=== PATIENT | male | born 1980 | race Caucasian/White ===

== ENCOUNTER 2020-01-07 22:34 | Emergency (ER) | payer MEDICAID ==
[~2020-01-07] VITALS: Ht 182.9 cm; Wt 63.5 kg
--- NOTE | 2020-01-07 22:52 | NUR ---
PT CAME TO THE ED C/O SI W/ A PLAN TO CUT HIMSELF. PT STATES " I DONT FEEL SAFE ANYMORE". DENIES HI AND DRUG USE. ON ATIVAN. PT AAOX4, NO ACUTE DISTRESS NOTED. CALM AND COOPERATIVE. PT CHANGED INTO GOWN, BELONGINGS PLACED TO LOCKER, SUICIDE PRECAUTIONS IMPLEMENTED. SITTER AT BEDSIDE FOR SAFETY.
[2020-01-07 23:07] LABS: APPEARANCE,URINE Clear (CLEAR); BILIRUBIN,URINE Negative (NEGATIVE); BLOOD, URINE Negative Ery/uL (NEGATIVE); COLOR,URINE Yellow (YELLOW); KETONES,URINE Negative (NEGATIVE); LEUKOCYTE ESTERASE ,URINE Negative (NEGATIVE); NITRITE, URINE Negative (NEGATIVE); PH,URINE 7.5 (5.0-8.0); PROTEIN,URINE Negative (NEGATIVE); UGLUCOSE Negative (NEGATIVE)
[2020-01-07 23:17] LABS: BASOPHILS # (AUTO) 0.1 /CMM (0.0-0.2); HEMATOCRIT 38 % (39-51); LYMPHOCYTES % (AUTO) 14.6 % (20.0-44.0); MEAN CORPUSCULAR HGB CONC 34 g/dl (31.0-36.0); MEAN CORPUSCULAR VOLUME 91 fL (80-96); MONOCYTES # (AUTO) 0.4 /CMM (0.1-1.30); MONOCYTES % (AUTO) 6.5 % (2.0-12.0); NEUTROPHILS # (AUTO) 5.1 /CMM (1.8-8.9); NEUTROPHILS % (AUTO) 75.9 % (43.0-81.0); PLATELET COUNT (AUTO) 210 /CMM (150-450); RED BLOOD CELL COUNT(AUTO) 4.18 MIL/uL (4.5-6.0); WHITE BLOOD COUNT (AUTO) 6.7 K/uL (4.3-11.0)
[2020-01-07 23:18] LABS: BACTERIA,URINE Few /HPF (None Seen); RBC,URINE 0-2 /HPF (0-2); SQUAMOUS EPITHELIAL CELL,UR Few /HPF (None Seen); WBC,URINE 0-2 /HPF (0-3)
[2020-01-07 23:25] LABS: CALCIUM, SERUM 8.7 mg/dL (8.5-10.1); CARBON DIOXIDE 32 mmol/L (21-32); CHLORIDE 104 mmol/L (98-107); CREATININE 0.9 mg/dL (0.6-1.3); GLUCOSE 133 mg/dL (74-106); POTASSIUM 3.7 mmol/L (3.5-5.1); SODIUM SERUM 141 mmol/L (136-145); UREA NITROGEN, BLOOD 14 mg/dL (7-18)
[2020-01-07 23:30] LABS: ACETAMINOPHEN 1 ug/ml (10-30); ALANINE AMINOTRANSFERASE 31 U/L (12-78); ALBUMIN 3.9 g/dL (3.4-5.0); ALCOHOL, BLOOD < 3 mg/dL (0-0); ALKALINE PHOSPHATASE 74 U/L (46-116); ASPARTATE AMINOTRANSFERASE 23 U/L (15-37); BILIRUBIN,DIRECT 0.1 mg/dL (0.0-0.2); BILIRUBIN,TOTAL 0.5 mg/dL (0.2-1.0); SALICYLATE 0.2 mg/dL (2.8-20.0); TOTAL PROTEIN, SERUM 7.1 g/dL (6.4-8.2)
[2020-01-08] MEDS ORDERED: IV NS 0.9% 1,000 ML IV ONE
--- NOTE | 2020-01-08 00:18 | NUR ---
CLINICAL FAXED TO [facility] FOR VOLUNTARY PSYCH ADMISSION.
--- NOTE | 2020-01-08 02:20 | NUR ---
PT ACCEPTED AT [facility] ACCEPTING MD FERNÁNDEZ/DR. WU PHONE # FOR REPORT [phone]
--- NOTE | 2020-01-08 02:28 | NUR ---
REPORT GIVEN TO ANA REDDY
--- NOTE | 2020-01-08 02:41 | NUR ---
PT RESTING COMFORTABLY IN BED. VSS. NO ACUTE DISTRESS NOTED. SITTER AT BEDSIDE FOR SAFETY
--- NOTE | 2020-01-08 04:00 | NUR ---
CALLED [facility] FOR BLS TRANSPORT, SAID THEY DO NOT HAVE BLS RIGS AVAILABILE TILL 629
--- NOTE | 2020-01-08 04:05 | NUR ---
CALLED [facility] FOR BLS TRANSPORT, SAID "DISPATCH TOLD ME TO INFORM YOU TO CALL [facility] FOR THIS TRANSPORT."
--- NOTE | 2020-01-08 04:10 | NUR ---
CALLED [facility] FOR BLS TRANSPORT, STATED "PT INSURANCE DOES NOT ALLOW THEM TO BE COVERED FOR TRANSPORTATION SERVICES".
--- NOTE | 2020-01-08 04:20 | NUR ---
PT REFUSED TO GET TRANSFERRED AT [facility]. MADE AWARE.
--- NOTE | 2020-01-08 06:04 | NUR ---
PT RESTING COMFORTABLY IN BED. VSS. NO ACUTE DISTRESS NOTED. SITTER AT BEDSIDE FOR SAFETY
--- NOTE | 2020-01-08 07:15 | NUR ---
RECEIVED PATIENT IN BED ASLEEP, EASILY AROUSABLE BY VOCE. HOOKED TO MONITOR, VSS, SITTER AT BEDSIDE, WILL CONTINUE TO MONITOR ACCORDINGLY, KEPT SAFE AND COMFORTABLE.
--- NOTE | 2020-01-08 07:27 | NUR ---
PT ASLEEP ON BED EASILY AROUSABLE, NOT IN RESPIRATORY DISTRESS, V/S STABLE, KEPT RESTED AND COMFORTABLE. WILL CONTINUE TO MONITOR.
--- NOTE | 2020-01-08 08:10 | NUR ---
SPOKED TO [facility]. NO BEDS AVAILABLE AT [facility], WILL FOLLOW UP LATER AFTERNOON
--- NOTE | 2020-01-08 08:37 | NUR ---
GIVEN BREAKFAST TRAY, TOLERATING PO WELL.
--- NOTE | 2020-01-08 12:31 | NUR ---
CALLED [facility] TO FOLLOW UP FOR BED, PER INTAKE NO BEDS AVAILABLE YET.
[2020-01-08] MEDS ORDERED: LORAZEPAM 1 MG TABLET ONE (13:36)
--- NOTE | 2020-01-08 13:40 | NUR ---
PT IS AWAKE ON BED, AAOX4, NOT IN RESPIRATORY DISTRESS, V/S STABLE, KEPT RESTED AND COMFORTABLE, WILL CONTINUE TO MONITOR.
[2020-01-08] MEDS ORDERED: LORAZEPAM 1 MG TABLET PO ONE (14:00)
--- NOTE | 2020-01-08 19:32 | NUR ---
CALLED [facility] FOR BEDS AT [place]. SAID THEY WERE UNABLE TO DISCHARGE PATIENTS TODAY, PLEASE CALL AFTER 0700 TOMORROW MORNING.
--- NOTE | 2020-01-08 21:48 | NUR ---
PT RESTING COMFORTABLY IN BED. VSS. NO ACUTE DISTRESS NOTED. SITTER AT BEDSIDE FOR SAFETY
--- NOTE | 2020-01-09 00:25 | NUR ---
PT RESTING COMFORTABLY IN BED. VSS. NO ACUTE DISTRESS NOTED. SITTER AT BEDSIDE FOR SAFETY
--- NOTE | 2020-01-09 03:35 | NUR ---
PT RESTING COMFORTABLY IN BED. VSS. NO ACUTE DISTRESS NOTED. SITTER AT BEDSIDE FOR SAFETY
--- NOTE | 2020-01-09 06:12 | NUR ---
PT RESTING COMFORTABLY IN BED. VSS. NO ACUTE DISTRESS NOTED. SITTER AT BEDSIDE FOR SAFETY
--- NOTE | 2020-01-09 07:16 | NUR ---
SPOKE TO INTAKE, SAID CALL AFTER 0930 FOR BED AVAILABILITY.
[2020-01-09] MEDS ORDERED: LORAZEPAM 1 MG TABLET ONE (08:28)
[2020-01-09] MEDS ORDERED: LORAZEPAM 1 MG TABLET PO ONE (08:30)
--- NOTE | 2020-01-09 10:00 | NUR ---
ALLI contacted Jhonatan at [facility] intake for an updated. Per Jhonatan,they will accept the pt at [place]. Intake [facility] intake to f/u with ALLI.
--- NOTE | 2020-01-09 13:04 | NUR ---
CHILD CARE EDUCATION COORDINATOR followed up with [facility] intake and spoke with Antonietta. Per Antonietta pt will be going to [facility], however there are pending discharges at this time and will follow up with SW in 30 minutes.
--- NOTE | 2020-01-09 14:23 | NUR ---
ALLI received a message from Jhonatan at [facility], pt will be accepted to [facility].
--- NOTE | 2020-01-09 15:10 | NUR ---
ART STOCK TURNER AT BEDSIDE FOR EVAL.
--- NOTE | 2020-01-09 15:30 | NUR ---
DAM ATTENDANT contacted Antonietta at [facility] and was informed pt has been accepted to [facility], Room 101/A. Accepting /Dr Whittington. Call report to Unit 1 propellant charge loader . DAM ATTENDANT updated ED with aforementioned information.
--- NOTE | 2020-01-09 15:50 | NUR ---
PT WANTS TO BE DISCHARGED AND STATED HE FEELS BETTER AND NOT SUICIDAL ANYMORE. AWARE.
--- NOTE | 2020-01-09 16:01 | NUR ---
Patient discharged to home in stable condition. Written and verbal after care instructions given. Patient verbalizes understanding of instruction.
[2020-01-09 16:02] VITALS: BP 120/71
--- NOTE | 2020-01-09 16:17 | NUR ---
Unable to changed departure disposition.Patient discharged to home in stable condition. Written and verbal after care instructions given. Patient verbalizes understanding of instruction.
== END 2020-01-09 16:19 | disposition home or self-care (01) ==
LOC: ER 22:37
DX: R45.851 Suicidal ideations (principal); F32.9 Major depressive disorder, single episode, unspecified; E11.9 Type 2 diabetes mellitus without complications; F90.9 Attention-deficit hyperactivity disorder, unspecified type; F43.10 Post-traumatic stress disorder, unspecified; F41.9 Anxiety disorder, unspecified
CPT/HCPCS: 36415; 80048; 80076; 80305; 80307; 80329; 81001; 85025; 99285; G0480; 81000-TC

== ENCOUNTER 2020-01-18 23:14 | Emergency (ER) | payer MEDICAID ==
[~2020-01-18] VITALS: Ht 182.9 cm; Wt 63.5 kg
--- NOTE | 2020-01-18 23:30 | NUR ---
URINE COLLECTED AND SENT TO LAB
--- NOTE | 2020-01-18 23:32 | NUR ---
BIBSELF C/O SUICIDAL IDEATION WITH PLAN TO CUT WRISTS. NOTED ABRASIONS/HESITATION BOND R WRIST, AWARE. PT ALSO STATES HE HAS HISTORY OF PTSD, RECENTLY GETTING WORSE. ALSO STATES HE HAS BEEN OFF PSYCH MEDICATIONS X1 WEEK. PT AAOX4. CALM AND COOPERATIVE. VITAL SIGNS STABLE. RESPIRATIONS EVEN AND UNLABORED. SKIN INTACT. AMBULATORY WITH STEADY GAIT. NO ACUTE DISTRESS NOTED AT THIS TIME. PT PLACED IN GOWN, BELONGINGS COLLECTED AND PLACED IN PATIENT LOCKER. SITTER AT BEDSIDE, WILL CONTINUE TO MONITOR.
--- NOTE | 2020-01-18 23:35 | NUR ---
DOUBLER OPERATOR AT BEDSIDE FOR BLOOD DRAW
[2020-01-18 23:45] LABS: BASOPHILS % (AUTO) 0.5 % (0.0-2.0); EOSINOPHILS % (AUTO) 5.9 % (0.0-6.0); HEMATOCRIT 38 % (39-51); HEMOGLOBIN 12.9 g/dL (13.5-17.5); LYMPHOCYTES # (AUTO) 1.2 /CMM (0.8-4.8); LYMPHOCYTES % (AUTO) 30.3 % (20.0-44.0); MEAN CORPUSCULAR HGB CONC 34 g/dl (31.0-36.0); MEAN CORPUSCULAR VOLUME 91 fL (80-96); MONOCYTES # (AUTO) 0.4 /CMM (0.1-1.30); MONOCYTES % (AUTO) 10.9 % (2.0-12.0); NEUTROPHILS # (AUTO) 2.2 /CMM (1.8-8.9); NEUTROPHILS % (AUTO) 52.4 % (43.0-81.0); PLATELET COUNT (AUTO) 212 /CMM (150-450); RED BLOOD CELL COUNT(AUTO) 4.16 MIL/uL (4.5-6.0); WHITE BLOOD COUNT (AUTO) 4.1 K/uL (4.3-11.0)
[2020-01-18 23:46] LABS: APPEARANCE,URINE Clear (CLEAR); BILIRUBIN,URINE Negative (NEGATIVE); BLOOD, URINE Trace-intact Ery/uL (NEGATIVE); COLOR,URINE DARK YELLOW (YELLOW); KETONES,URINE Negative (NEGATIVE); LEUKOCYTE ESTERASE ,URINE Negative (NEGATIVE); NITRITE, URINE Negative (NEGATIVE); PROTEIN,URINE Negative (NEGATIVE); UGLUCOSE Negative (NEGATIVE); UROBILINOGEN,URINE 0.2 EU/dL (0.2)
[2020-01-18 23:57] LABS: CALCIUM, SERUM 8.9 mg/dL (8.5-10.1); CARBON DIOXIDE 35 mmol/L (21-32); CHLORIDE 100 mmol/L (98-107); CREATININE 0.8 mg/dL (0.6-1.3); GLUCOSE 87 mg/dL (74-106); POTASSIUM 4.5 mmol/L (3.5-5.1); SODIUM SERUM 140 mmol/L (136-145); UREA NITROGEN, BLOOD 23 mg/dL (7-18)
[2020-01-18 23:58] LABS: BACTERIA,URINE Rare /HPF (None Seen); SQUAMOUS EPITHELIAL CELL,UR Few /HPF (None Seen); WBC,URINE NONE SEEN /HPF (0-3)
[2020-01-19 00:02] LABS: ACETAMINOPHEN 13 ug/ml (10-30); ALANINE AMINOTRANSFERASE 23 U/L (12-78); ALBUMIN 3.8 g/dL (3.4-5.0); ALCOHOL, BLOOD < 3 mg/dL (0-0); ALKALINE PHOSPHATASE 66 U/L (46-116); ASPARTATE AMINOTRANSFERASE 29 U/L (15-37); BILIRUBIN,DIRECT 0.1 mg/dL (0.0-0.2); BILIRUBIN,TOTAL 0.4 mg/dL (0.2-1.0); TOTAL PROTEIN, SERUM 7.5 g/dL (6.4-8.2)
[2020-01-19 00:03] LABS: SALICYLATE 0.7 mg/dL (2.8-20.0)
--- NOTE | 2020-01-19 00:58 | NUR ---
CLINICAL FAXED TO [facility] FOR VOLUNTARY PSYCH ADMISSION.
--- NOTE | 2020-01-19 02:41 | NUR ---
PT RESTING COMFORTABLY IN BED. VSS. NO ACUTE DISTRESS NOTED.
--- NOTE | 2020-01-19 04:35 | NUR ---
TRANSFER INFORMATION: PT ACCEPTED TO [facility] ACCE[facility]ING MD: DR. FERNÁNDEZ/DR. WU NUMBER FOR REPORT: [phone] UNIT 1
--- NOTE | 2020-01-19 04:40 | NUR ---
TRANSPORT CALLED ([facility]) ETA 07
--- NOTE | 2020-01-19 04:40 | NUR ---
REPORT GIVEN TO ANA MEANS FROM [facility]
[2020-01-19 06:39] VITALS: BP 101/69
--- NOTE | 2020-01-19 06:39 | NUR ---
pt asleep. vss.
--- NOTE | 2020-01-19 07:22 | NUR ---
REPORT GIVEN TO TRANSFER. PT TRANSFERED.
== END 2020-01-19 07:24 ==
LOC: ER 23:14
DX: R45.851 Suicidal ideations (principal); E11.9 Type 2 diabetes mellitus without complications; F90.9 Attention-deficit hyperactivity disorder, unspecified type; F43.10 Post-traumatic stress disorder, unspecified; F41.9 Anxiety disorder, unspecified
CPT/HCPCS: 36415; 80048; 80076; 80305; 80307; 80329; 81001; 85025; 99285; G0480; 81000-TC

== ENCOUNTER 2020-02-01 21:45 | Emergency (ER) | payer MEDICAID ==
[~2020-02-01] VITALS: Ht 182.9 cm; Wt 63.5 kg
--- NOTE | 2020-02-01 22:01 | NUR ---
PT AAOX4. AMBULATORY WITH STEADY GAIT. BIBSELF C/O +SI WITH PLAN TO CUT SELF, -HI. PT HAS A PLAN TO OVERDOSE ON PILLS AND TO CUT SELF. PATIENT STATED HE WANTED TO "GO TO [facility]." PT PLACED ON MONITOR AND PULSE OX. PLACED IN GOWN AND BELONINGS PLACED IN LOCKER.
--- NOTE | 2020-02-01 22:03 | NUR ---
XRAY AT BEDSIDE
--- NOTE | 2020-02-01 22:11 | NUR ---
ELEVATOR REPAIRER AT BEDSIDE
[2020-02-01 22:14] LABS: BASOPHILS % (AUTO) 0.7 % (0.0-2.0); EOSINOPHILS % (AUTO) 3.2 % (0.0-6.0); HEMATOCRIT 41 % (39-51); HEMOGLOBIN 13.9 g/dL (13.5-17.5); LYMPHOCYTES # (AUTO) 1.2 /CMM (0.8-4.8); LYMPHOCYTES % (AUTO) 24.2 % (20.0-44.0); MEAN CORPUSCULAR HGB CONC 34 g/dl (31.0-36.0); MEAN CORPUSCULAR VOLUME 92 fL (80-96); MONOCYTES # (AUTO) 0.5 /CMM (0.1-1.30); MONOCYTES % (AUTO) 9.6 % (2.0-12.0); NEUTROPHILS # (AUTO) 3.1 /CMM (1.8-8.9); NEUTROPHILS % (AUTO) 62.3 % (43.0-81.0); PLATELET COUNT (AUTO) 285 /CMM (150-450); RED BLOOD CELL COUNT(AUTO) 4.46 MIL/uL (4.5-6.0)
[2020-02-01 22:17] LABS: APPEARANCE,URINE Clear (CLEAR); BILIRUBIN,URINE Negative (NEGATIVE); BLOOD, URINE Trace-intact Ery/uL (NEGATIVE); COLOR,URINE Yellow (YELLOW); KETONES,URINE Negative (NEGATIVE); LEUKOCYTE ESTERASE ,URINE Negative (NEGATIVE); NITRITE, URINE Negative (NEGATIVE); PH,URINE 6.5 (5.0-8.0); PROTEIN,URINE Negative (NEGATIVE); UGLUCOSE Negative (NEGATIVE)
[2020-02-01] MEDS ORDERED: diphenhydrAMINE HCL 25 MG CAPSULE ONE (22:17)
[2020-02-01] MEDS: DIPHENHYDRAMINE HCL 12.5 MG/5 ML UDC PO ONE (22:19)
[2020-02-01 22:22] LABS: CALCIUM, SERUM 9.2 mg/dL (8.5-10.1); CARBON DIOXIDE 29 mmol/L (21-32); CHLORIDE 102 mmol/L (98-107); GLUCOSE 85 mg/dL (74-106); SODIUM SERUM 137 mmol/L (136-145); UREA NITROGEN, BLOOD 13 mg/dL (7-18)
[2020-02-01 22:26] LABS: BACTERIA,URINE Rare /HPF (None Seen); SQUAMOUS EPITHELIAL CELL,UR Few /HPF (None Seen); WBC,URINE NONE SEEN /HPF (0-3)
[2020-02-01 22:28] LABS: ALANINE AMINOTRANSFERASE 18 U/L (12-78); ALBUMIN 4.3 g/dL (3.4-5.0); ALCOHOL, BLOOD < 3 mg/dL (0-0); ALKALINE PHOSPHATASE 78 U/L (46-116); ASPARTATE AMINOTRANSFERASE 18 U/L (15-37); BILIRUBIN,DIRECT 0.1 mg/dL (0.0-0.2); BILIRUBIN,TOTAL 0.6 mg/dL (0.2-1.0); TOTAL PROTEIN, SERUM 7.7 g/dL (6.4-8.2)
[2020-02-01 22:29] LABS: ACETAMINOPHEN < 2 ug/ml (10-30); SALICYLATE 0.4 mg/dL (2.8-20.0)
--- NOTE | 2020-02-01 23:14 | NUR ---
PATIENT RESTING. PROVIDED WITH SANDWHICH AND WATER.
--- NOTE | 2020-02-02 00:21 | NUR ---
ACCEPTED SO DR. JOLENE LOYA. FOR NURSE GROUP WORK PROGRAM DIRECTOR,
[2020-02-02 00:58] VITALS: BP 124/64
--- NOTE | 2020-02-02 01:01 | NUR ---
PATIENT ASLEEP, PROVIDED WITH BLANKET.
--- NOTE | 2020-02-02 01:02 | NUR ---
CALLED [facility] FOR TRANSPORTATION ETA [phone]
--- NOTE | 2020-02-02 02:22 | NUR ---
CALLED [facility], SHAD IS NOT AVAILABLE. WAS TOLD TO CALL WHEN AMBULANCE IS IN THE ED.
--- NOTE | 2020-02-02 02:33 | NUR ---
REPORT GIVEN TO NURSING SHAD DILL FROM [facility]
--- NOTE | 2020-02-02 03:08 | NUR ---
REPORT GIVEN TO [facility] [phone] FOR TRANSPORTATION [facility]
== END 2020-02-02 03:40 ==
LOC: ER 21:45
DX: R45.851 Suicidal ideations (principal); J34.89 Other specified disorders of nose and nasal sinuses; F90.9 Attention-deficit hyperactivity disorder, unspecified type; F43.10 Post-traumatic stress disorder, unspecified; F41.9 Anxiety disorder, unspecified
CPT/HCPCS: 36415; 71045; 80048; 80076; 80305; 80307; 80329; 81001; 85025; 99285; G0480; Q0163 ×2; 81000-TC